=== PATIENT | female | born 2000 | race Caucasian/White ===

== ENCOUNTER 2021-06-18 16:51 | Emergency (ER) | payer MEDICAID ==
[~2021-06-18] VITALS: Ht 157.5 cm; Wt 60.3 kg
[2021-06-18 16:58] VITALS: BP 130/74
--- NOTE | 2021-06-18 17:18 | NUR ---
20/F BIB SELF WITH C/O VOMITING AND ABDOMINAL PAIN. PATIENT STATES FOR THE LAST 2 DAYS IMMEDIATELY AFTER EATING SHE VOMITS OR HAS A LOOSE BOWEL MOVEMENT. UNABLE TO KEEP FOOD DOWN. DENIES FEVER, CHILLS, CP, SOB. PT STATED SHE HAS BEEN ACTIVELY SMOKING WEED FOR THE PAST 7 YEARS ON A DAILY BASIS. BOWEL SOUNDS HYPOACTIVE AND TENDERNESS FELT ON RUQ AND LLQ. BREATH SOUNDS CLEAR BILATERALLY AND S1/S2 HEARD MEDHX: ASTHMA ALLERGIES: DENIES
--- NOTE | 2021-06-18 17:47 | NUR ---
BEDSIDE EVALUATING PT
[2021-06-18] MEDS: ALUMINUM HYD/MAG/SIMETHICONE 30 ML UDC PO ONE (18:03)
[2021-06-18] MEDS: ONDANSETRON 4 MG ODT PO ONE (18:03)
[2021-06-18] MEDS: DICYCLOMINE 10 MG CAP PO ONE (18:03)
--- NOTE | 2021-06-18 18:41 | NUR ---
PATIENT RESTING WITH EYES OPEN AND BED IN LOWEST POSITION. SIDERAIL X1 UP. PT PROVIDED WITH WARM BLANKET, JUICE, AND CRACKERS. PT STATED SHE IS FEELING BETTER AND NO NAUSEA. VITAL SIGNS STABLE AND CHARTED
[2021-06-18] MEDS ORDERED: BEN10 PO (18:45)
[2021-06-18] MEDS ORDERED: ONDA-24 PO (18:47)
[2021-06-18 19:05] VITALS: BP 103/63
--- NOTE | 2021-06-18 19:06 | NUR ---
Patient discharged with v/s stable. Written and verbal after care instructions given and explained. Patient alert, oriented and verbalized understanding of instructions. Ambulatory with steady gait. All questions addressed prior to discharge. ID band removed. Patient advised to follow up with PMD. Rx of ZOFRAN AND BENTYL given. Patient educated on indication of medication including possible reaction and side effects. Opportunity to ask questions provided and answered.
== END 2021-06-18 19:06 | disposition home or self-care (01) ==
LOC: MED 16:51
DX: K52.9 Noninfective gastroenteritis and colitis, unspecified (principal); N94.6 Dysmenorrhea, unspecified; J45.909 Unspecified asthma, uncomplicated; F12.90 Cannabis use, unspecified, uncomplicated; Z79.899 Other long term (current) drug therapy
CPT/HCPCS: 81002; 81025; 99284; Q0162

== ENCOUNTER 2021-09-13 00:21 | Emergency (ER) | payer MEDICAID ==
[~2021-09-13 00:21] MED LIST: BEN10 PO; ONDA-188 PO
--- NOTE | 2021-09-13 02:08 | NUR ---
CALLED PT IN TENT FOR TRIAGE, NO ANSWER.
--- NOTE | 2021-09-13 02:11 | NUR ---
CALLED PT TO CELL PHONE. PT STATED SHE LEFT.
== END 2021-09-13 02:11 | disposition left against medical advice (07) ==
LOC: MED 00:21
DX: Z53.21 Procedure and treatment not carried out due to patient leaving prior to being seen by health care provider (principal)

== ENCOUNTER 2023-01-30 10:49 | Emergency (ER) | payer MEDICAID ==
[~2023-01-30] VITALS: Ht 160 cm; Wt 64.0 kg
[2023-01-30 10:55] VITALS: BP 97/56
--- NOTE | 2023-01-30 11:12 | NUR ---
JEVON BATISTA AT BEDSIDE FOR EVALUATION
--- NOTE | 2023-01-30 11:20 | NUR ---
lab at bedside
--- NOTE | 2023-01-30 11:30 | NUR ---
22 YO F PRESENTS W/ PELVIC PAIN RADIATING TO RLQ W/DISCHARGE X 2 WKS, NAUSEA, INTERMITTENT CORRAL. PT DENIES V,D,C, FEVER, URINARY SYMPTOMS, NAD. HX; ASTHMA MEDS: ZOLOFT, ABILIFY, SLEEPING MEDS-CAN'T REMEMBER NAME NKA
[2023-01-30 11:36] LABS: APPEARANCE,URINE CLEAR (CLEAR); BILIRUBIN,URINE NEGATIVE (NEGATIVE); BLOOD, URINE TRACE-I (NEGATIVE); COLOR,URINE YELLOW (YELLOW); LEUKOCYTE ESTERASE ,URINE NEGATIVE (NEGATIVE); NITRITE, URINE NEGATIVE (NEGATIVE); UGLUCOSE NEGATIVE (NEGATIVE)
[2023-01-30 11:55] LABS: RBC,URINE 0-5 /HPF (0-5); TRICHOMONAS,URINE None Seen /HPF (None Seen); YEAST,URINE None Seen /HPF (None Seen)
[2023-01-30] MEDS ORDERED: cefTRIAXone 500 MG in LIDOCAINE MPF 1% 1 ML IM ONE (12:35)
[2023-01-30] MEDS ORDERED: DOXY-690 PO (12:50)
[2023-01-30] MEDS ORDERED: cefTRIAXone 500 MG VIAL ONE (12:50)
[2023-01-30] MEDS ORDERED: LIDOCAINE MPF 1% 5 ML ONE (12:50)
[2023-01-30 13:10] VITALS: BP 101/58
--- NOTE | 2023-01-30 13:12 | NUR ---
Patient discharged with v/s stable. Written and verbal after care instructions given and explained. Patient alert, oriented and verbalized understanding of instructions. Ambulatory with steady gait. All questions addressed prior to discharge. ID band removed. Patient advised to follow up with PMD. Rx of VIBRAMYCIN given. Opportunity to ask questions provided and answered.
--- NOTE | 2023-01-30 13:13 | NUR ---
The patient's care was reviewed and supervised by Alma Leslie, RN, RN.
== END 2023-01-30 13:10 | disposition home or self-care (01) ==
LOC: MED 10:49
DX: R10.2 Pelvic and perineal pain (principal); Z11.3 Encounter for screening for infections with a predominantly sexual mode of transmission; J45.909 Unspecified asthma, uncomplicated; Z79.899 Other long term (current) drug therapy; Z79.2 Long term (current) use of antibiotics
CPT/HCPCS: 81001; 81025; 86592; 86703; 87491; 96372; 99283; J0696; J2001

== ENCOUNTER 2023-07-23 03:00 | Emergency (ER) | payer MEDICAID ==
[~2023-07-23] VITALS: Ht 157.5 cm; Wt 63.5 kg
[~2023-07-23 03:00] MED LIST changes: +DOXY-690 PO
[2023-07-23 03:09] VITALS: BP 107/62; PULSE 82; RESP 18; TEMP 97.6; O2SAT 100
[2023-07-23] MEDS ORDERED: ONDANSETRON 4 MG ODT PO ONE (03:30)
[2023-07-23] MEDS ORDERED: ONDA8TAB87 PO (04:30)
[2023-07-23 04:38] VITALS: BP 107/62; PULSE 82; RESP 18; TEMP 97.6; O2SAT 100
== END 2023-07-23 04:38 | disposition home or self-care (01) ==
LOC: MED 03:00
DX: O26.893 Other specified pregnancy related conditions, third trimester (principal); R11.2 Nausea with vomiting, unspecified; Z3A.28 28 weeks gestation of pregnancy
CPT/HCPCS: 81002; 81025; 99283; Q0162